=== PATIENT | female | born 1955 | race Caucasian/White ===

== ENCOUNTER → 2018-04-17 08:56 | Outpatient (CLI) | payer OTHER, SELFPAY ==
[2018-04-17 10:15] LABS: Cholesterol 204 mg/dL (140-199); HDL Cholesterol 68 mg/dL (40-60); LDL Cholesterol Calculated 122 mg/dL (<100); Triglycerides 72 mg/dL (35-150)
[2018-04-17 10:22] LABS: Creatinine Urine Random 10.7 mg/dL
[2018-04-17 10:26] LABS: Microalbumi Creatinin Ratio Ur 112.1 ug/mg CR (<30); Microalbumin Urine Random 1.2 mg/dL (0-1.6)
[2018-04-17 10:34] LABS: Vitamin D 25 Hydroxy (D3) 22.4 ng/mL (30.0-100.0)
== END ==
PROVIDERS: PCP Family Medicine; Visit Provider Internal Medicine
DX: R80.9 Proteinuria, unspecified (principal); E78.2 Mixed hyperlipidemia; E55.9 Vitamin D deficiency, unspecified
CPT/HCPCS: 36415; 80061; 82043; 82306; 82570

== ENCOUNTER → 2019-04-30 08:44 | Outpatient (CLI) | payer OTHER, SELFPAY ==
[2019-04-30 10:54] LABS: Creatinine Urine Random 15.3 mg/dL
[2019-04-30 10:57] LABS: Microalbumi Creatinin Ratio Ur 58.8 ug/mg CR (<30); Microalbumin Urine Random 0.9 mg/dL (0-1.6)
[2019-04-30 11:10] LABS: Vitamin D 25 Hydroxy (D3) 24.4 ng/mL (30.0-100.0)
== END ==
PROVIDERS: PCP Family Medicine; Visit Provider Internal Medicine
DX: E55.9 Vitamin D deficiency, unspecified (principal); E10.22 Type 1 diabetes mellitus with diabetic chronic kidney disease; N18.4 Chronic kidney disease, stage 4 (severe)
CPT/HCPCS: 36415; 82043; 82306; 82570

== ENCOUNTER → 2019-05-15 07:05 | Outpatient (CLI) | payer OTHER, SELFPAY ==
[2019-05-15 09:35] LABS: Alanine Aminotransferase 23 IU/L (9-52); Albumin 4.2 g/dL (3.5-5.0); Albumin Globulin Ratio 1.4 (1.0-2.8); Alkaline Phosphatase 94 U/L (38-126); Aspartate Aminotransferase 20 IU/L (14-36); BUN Creatinine Ratio 17.5 (6-22); Bilirubin Total 0.8 mg/dL (0.2-1.3); Blood Urea Nitrogen 14 mg/dL (7-17); Calcium 9.2 mg/dL (8.4-10.2); Carbon Dioxide 29 mmol/L (22-32); Chloride 101 mmol/L (98-107); Estimated Glomerular Filt Rate > 60.0 mL/min (>60); Globulin 2.9 g/dL (1.7-4.1); Glucose 162 mg/dL (80-110); HEMOLYSIS < 15 (0-50); Potassium 4.2 mmol/L (3.4-5.1); Sodium 140 mmol/L (137-145); Total Protein 7.1 g/dL (6.3-8.2)
== END ==
PROVIDERS: PCP Family Medicine; Visit Provider Internal Medicine
DX: E10.65 Type 1 diabetes mellitus with hyperglycemia (principal)
CPT/HCPCS: 36415; 80053

== ENCOUNTER → 2020-10-03 10:37 | Outpatient (CLI) | payer OTHER, SELFPAY ==
[2020-10-03 12:06] LABS: Hemoglobin A1C% w Est Avg Glu 9.9 % (4.0-6.0)
[2020-10-03 12:07] LABS: Creatinine Urine Random 46.7 mg/dL
[2020-10-03 12:08] LABS: Microalbumi Creatinin Ratio Ur 23.5 ug/mg CR (<30); Microalbumin Urine Random 1.1 mg/dL (0-1.6)
[2020-10-03 12:20] LABS: Alanine Aminotransferase 27 IU/L (<35); Albumin 4.2 g/dL (3.5-5.0); Albumin Globulin Ratio 1.4 (1.0-2.8); Alkaline Phosphatase 93 U/L (38-126); Aspartate Aminotransferase 27 IU/L (14-36); BUN Creatinine Ratio 20.2 (6-22); Bilirubin Total 0.5 mg/dL (0.2-1.3); Blood Urea Nitrogen 17 mg/dL (7-17); Calcium 8.7 mg/dL (8.4-10.2); Carbon Dioxide 33 mmol/L (22-32); Chloride 100 mmol/L (98-107); Estimated Glomerular Filt Rate > 60.0 mL/min (>60); Globulin 2.9 g/dL (1.7-4.1); Glucose 160 mg/dL (80-110); HEMOLYSIS < 15 (0-50); Potassium 4.3 mmol/L (3.4-5.1); Sodium 136 mmol/L (137-145); Total Protein 7.1 g/dL (6.3-8.2)
== END ==
PROVIDERS: PCP Family Medicine; Referring Provider Internal Medicine; Visit Provider Internal Medicine
DX: N18.2 Chronic kidney disease, stage 2 (mild) (principal); Z79.4 Long term (current) use of insulin; E10.22 Type 1 diabetes mellitus with diabetic chronic kidney disease
CPT/HCPCS: 36415; 80053; 82043; 82570; 83036

== ENCOUNTER → 2021-05-02 14:54 | Outpatient (CLI) | payer OTHER, SELFPAY ==
--- NOTE | 2021-05-02 14:58 | DI.RAD.S_ITS ---
PROCEDURE: XR WRIST RT MIN 3V INDICATIONS: swollen wrist TECHNIQUE: 4 views of the wrist were acquired. COMPARISON: None. FINDINGS: Bones: No fractures or dislocations. No suspicious bony lesions. Scaphoid view: No trauma found. Soft tissues: No suspicious soft tissue calcifications. IMPRESSION: No trauma found. Dictated by: Oscar Barrett M.D. on 05/02/2021 at 15:28 Approved by: Oscar Barrett M.D. on 05/02/2021 at 15:29
== END ==
PROVIDERS: Referring Provider Physician Assistant; Visit Provider Physician Assistant
DX: M25.431 Effusion, right wrist (principal)
CPT/HCPCS: 73110

== ENCOUNTER → 2021-06-07 14:38 | Outpatient (CLI) | payer OTHER, SELFPAY ==
[2021-06-07 14:57] LABS: COVID19 -Nasal RAPID Negative (Negative)
== END ==
PROVIDERS: Referring Provider Physician Assistant; Visit Provider Physician Assistant
DX: R09.81 Nasal congestion (principal); Z20.822 Contact with and (suspected) exposure to COVID-19
CPT/HCPCS: 87635

== ENCOUNTER → 2022-03-06 09:35 | Outpatient (CLI) | payer MEDICARE, SELFPAY ==
--- NOTE | 2022-03-06 09:39 | DI.RAD.S_ITS ---
PROCEDURE: XR RIBS LT MIN 3V W CXR1V INDICATIONS: Left posterior rib pain, fall TECHNIQUE: 2 views of the left ribs were acquired, along with a single view chest. COMPARISON: None. FINDINGS: Surgical changes and devices: None. Bones and chest wall: No fractures or dislocations. No suspicious bony lesions. Overlying soft tissues appear unremarkable. Lungs and pleura: No pleural effusions or pneumothorax. Lungs appear clear. Mediastinum: Mediastinal contours appear normal. Heart size is normal. IMPRESSION: No acute cardiopulmonary findings No evidence of rib fracture Approved by: Yazan Batista M.D. on 03/06/2022 at 9:57
== END ==
PROVIDERS: Referring Provider Physician Assistant; Visit Provider Physician Assistant
DX: R07.81 Pleurodynia (principal)
CPT/HCPCS: 71101

== ENCOUNTER → 2022-04-10 10:35 | Outpatient (CLI) | payer MEDICARE, SELFPAY ==
[2022-04-10 11:45] LABS: Glucose 121 mg/dL (80-110)
[2022-04-11 05:43] LABS: C Peptide 0.5 ng/mL (1.1-4.4)
== END ==
PROVIDERS: Referring Provider Nurse Practitioner Family; Visit Provider Nurse Practitioner Family
DX: E10.65 Type 1 diabetes mellitus with hyperglycemia (principal)
CPT/HCPCS: 36415; 82947; 84681

== ENCOUNTER → 2022-08-29 15:10 | Outpatient (CLI) | payer MEDICARE, SELFPAY ==
--- NOTE | 2022-08-29 15:13 | DI.MG.S_ITS ---
BILATERAL DIGITAL SCREENING MAMMOGRAM 3D/2D WITH CAD: 08/29/2022 CLINICAL: Routine screening. Family history of breast cancer. Comparison is made to exams dated: 04/24/2016 mammogram, 02/16/2013 mammogram - [facility], and 04/28/2008 mammogram - [facility]. There are scattered areas of fibroglandular density in both breasts (category b / 25%-50% glandular tissue). Current study was also evaluated with a Computer Aided Detection (CAD) system. No significant masses, calcifications, or other findings are seen in either breast. There has been no significant interval change. IMPRESSION: NEGATIVE There is no mammographic evidence of malignancy. A 1 year screening mammogram is recommended. Based on the Tyrer Cuzick model (a risk assessment model) the patient's lifetime risk is 6.9% and her 10 year risk is 3.3%. According to the ACR, ACS, and NCCN guidelines, an annual breast MRI exam along with mammogram is recommended if the patient's lifetime risk is 20% or greater. This exam was interpreted at Station ID: [id number]. NOTE: For mammograms, a report in lay terms will be sent to the patient. Approximately 15% of breast malignancies will not be visualized mammographically. In the management of a palpable breast mass, a negative mammogram must not discourage biopsy of a clinically suspicious lesion. Electronically Signed By: Cal Patricio M.D., jr/yokasta:08/30/2022 10:36:09 letter sent: Normal Exam ACR BI-RADS Category 1: Negative 3341F
== END ==
PROVIDERS: Referring Provider Family Medicine; Visit Provider Family Medicine
DX: Z12.31 Encounter for screening mammogram for malignant neoplasm of breast (principal); M85.852 Other specified disorders of bone density and structure, left thigh; Z13.820 Encounter for screening for osteoporosis; Z78.0 Asymptomatic menopausal state; K58.9 Irritable bowel syndrome, unspecified
CPT/HCPCS: 77063; 77067; 77080

== ENCOUNTER → 2023-02-22 10:39 | Outpatient (CLI) | payer MEDICARE, SELFPAY ==
[2023-02-22 11:29] LABS: Add Manual Diff / Slide Review NO; Basophils Absolute Auto 0 /uL (0-100); Basophils Percent Auto 0.7 % (0-2); Eosinophils Absolute Auto 100 /uL (0-450); Eosinophils Percent Auto 2.1 % (2-4); Hematocrit 41.7 % (36-46); Hemoglobin 13.9 g/dL (12.0-16.0); Lymphocytes Absolute Auto 2100 /uL (1100-4500); Lymphocytes Percent Auto 29.2 % (25-40); Mean Corpuscular HGB Conc 33.3 % (30-36); Mean Corpuscular Hemoglobin 30.7 PG (26-34); Mean Corpuscular Volume 91.9 fL (80-100); Monocytes Absolute Auto 500 /uL (0-900); Monocytes Percent Auto 7.4 % (3-14); Neutrophils Absolute Auto 4300 /uL (1500-7000); Neutrophils Percent Auto 60.6 % (50-75); Platelet Count 191 X10^3/uL (150-400); Red Blood Cell Count 4.54 X10^6/uL (4.0-5.2); Red Cell Distribution Width 14.3 % (11.6-14.8); White Blood Cell Count 7.1 X10^3/uL (4.5-11.0)
[2023-02-22 11:47] LABS: Alanine Aminotransferase 26 IU/L (<35); Albumin 4.2 g/dL (3.5-5.0); Albumin Globulin Ratio 1.2 (1.0-2.8); Alkaline Phosphatase 96 U/L (38-126); Aspartate Aminotransferase 28 IU/L (14-36); BUN Creatinine Ratio 20.3 (6-22); Bilirubin Total 0.6 mg/dL (0.2-1.3); Blood Urea Nitrogen 16 mg/dL (7-17); Calcium 8.7 mg/dL (8.4-10.2); Carbon Dioxide 28 mmol/L (22-32); Chloride 102 mmol/L (98-107); Cholesterol 198 mg/dL (140-199); Estimated Glomerular Filt Rate > 60 mL/min (>60); Globulin 3.4 g/dL (1.7-4.1); Glucose 82 mg/dL (80-110); HDL Cholesterol 59 mg/dL (40-60); HEMOLYSIS < 15 (0-50); LDL Cholesterol Calculated 123 mg/dL (<100); Potassium 3.9 mmol/L (3.4-5.1); Sodium 137 mmol/L (137-145); Total Protein 7.6 g/dL (6.3-8.2); Triglycerides 82 mg/dL (35-150)
[2023-02-22 12:03] LABS: Vitamin D 25 Hydroxy (D3) 43.6 ng/mL (30.0-100.0)
[2023-02-22 12:52] LABS: Folate > 20.0 ng/mL (2.76-20.0); Vitamin B12 > 1000 pg/mL (239-931)
[2023-02-23 17:39] LABS: Tissue Transglutaminase IgA <2 U/mL (0-3)
[2023-03-06 15:08] LABS: Alpha-Tocopherol 13.3 mg/L (9.0-29.0); Gamma-Tocopherol 0.9 mg/L (0.5-4.9)
== END ==
PROVIDERS: PCP Family Medicine; Referring Provider Family Medicine; Visit Provider Family Medicine
DX: E10.8 Type 1 diabetes mellitus with unspecified complications (principal); K90.0 Celiac disease; G62.9 Polyneuropathy, unspecified
CPT/HCPCS: 36415; 80053; 80061; 82306; 82607; 82746; 83036; 83516; 84446; 84597; 85025

== ENCOUNTER → 2023-08-28 14:42 | Outpatient (CLI) | payer MEDICARE, SELFPAY ==
[2023-08-28 16:42] LABS: C-Reactive Protein Quant < 0.5 mg/dL (<1.0)
[2023-08-28 16:53] LABS: Rheumatoid Factor < 8.6 IU/mL (<12.0)
[2023-08-28 17:58] LABS: Erythrocyte Sedimentation Rate 6 MM/HR (0-20)
[2023-08-29 21:27] LABS: CCP Antibodies IgG/IgA 0 units (0-19)
[2023-09-02 16:10] LABS: ANA Screen, IFA Negative (.)
== END ==
PROVIDERS: PCP Family Medicine; Referring Provider Family Medicine; Visit Provider Family Medicine
DX: K12.0 Recurrent oral aphthae (principal)
CPT/HCPCS: 36415; 85651; 86038; 86140; 86200; 86430

== ENCOUNTER → 2024-04-21 | Outpatient (CLI) | payer MEDICARE, SELFPAY ==
--- NOTE | 2024-04-21 12:23 | DI.US.S_ITS ---
PROCEDURE: US ABDOMEN LIMITED INDICATIONS: LEFT UPPER QUADRANT PAIN TECHNIQUE: Real-time scanning was performed of the abdominal and retroperitoneal organs, with image documentation. COMPARISON: None. FINDINGS: Limited left upper quadrant ultrasound was performed. Spleen: Normal size and echotexture. Pancreas: Not well seen. Left Kidney: Mildly dilated collecting system in the lower pole. No stones. Bladder: Empty. Miscellaneous: No free abdominal fluid. IMPRESSION: 1. Mildly dilated left lower renal collecting system. Consider CT KUB for further evaluation. Dictated by: Tiana Adhikari M.D. on 04/22/2024 at 8:35 Approved by: Tiana Adhikari M.D. on 04/22/2024 at 8:38
== END ==
LOC: US 12:23
PROVIDERS: PCP Family Medicine; Referring Provider Family Medicine; Visit Provider Family Medicine
DX: R10.12 Left upper quadrant pain (principal)
CPT/HCPCS: 76705

== ENCOUNTER 2025-05-16 21:19 | Emergency (ER) | payer MEDICARE, SELFPAY ==
--- NOTE | 2025-05-16 21:20 | ED.UPPEXIN ---
HPI - Extremity Injury (Upper) General Chief Complaint: Extremity Injury, Upper Stated Complaint: Left hand injury Time Seen by Provider: 05/16/25 21:20 History of Present Illness HPI narrative: Patient is a 69-year-old female without any significant past medical history presents to the emergency department from home for evaluation of left thumb pain, she states that earlier today she was opening a door to her car that was stuck and ended up hitting/hurting the left thumb. She states that she is not having any other injuries no numbness tingling not on any blood thinners but states that due to persistent symptoms decided come into the ED for further evaluation treatment Related Data Home Medications ?Medication ?Instructions ?Recorded ?Confirmed Valacyclovir Hydrochloride 500 mg PO Q DAY ##0 03/11/10 03/06/22 (Valtrex) subcutaneous insulin pump 06/07/21 03/06/22 Previous Rx's ?Medication ?Instructions ?Recorded azelastine 137 mcg (0.1 %) nasal 1 spray intranasal BID #30 mL 06/07/21 spray doxycycline hyclate 100 mg tablet 200 mg (2 x 100 mg) PO ONCE #2 tabs 04/13/22 Allergies Allergy/AdvReac Type Severity Reaction Status Date / Time insulin glargine (From Allergy Intermediate dizziness, Verified 03/06/22 09:11 Lantus U-100 Insulin) jittery metoclopramide Allergy Intermediate dizziness, Verified 03/06/22 09:11 jittery Review of Systems Review of Systems Narrative: General: Denies fever, chills, weight loss HEENT: Denies headache, eye drainage, eye irritation, head trauma, sore throat, voice change Cardiovascular: Denies any chest pain, palpitations, tachycardia Respiratory: Denies any shortness of breath, cough, wheeze, stridor GI/: Denies any abdominal pain, nausea, vomiting, diarrhea, bright red blood per rectum, melanotic stools, urinary frequency, urinary retention, dysuria, hematuria MSK: Positive left thumb pain Skin: Denies any rashes, lesions, discoloration Neuro: Denies any headache, lightheadedness, dizziness, fainting, weakness Psych: Denies SI/HI Exam Narrative Exam Narrative: General: Cooperative, well-developed, not in acute distress HEENT: Normocephalic, atraumatic, PERRLA, normal sclera, eyelids normal Neck: Active full range of motion, atraumatic Chest: Normal to inspection, negative crepitus, no overlying erythema ecchymosis Respiratory: Normal respiratory effort, not in acute respiratory distress, clear to auscultation bilaterally negative cough, wheeze, tachypnea, rhonchi, rales Cardiology: Regular rate rhythm negative gallop, murmur, rubs GI/: No tenderness to palpation, soft, non rigid, normal to inspection, exam deferred MSK: Full active range of motion in all 4 extremities, atraumatic, bilateral upper extremities neurovascularly intact, there is ecchymosis and tenderness to palpation of the left thumb and no snuffbox tenderness to palpation, Skin: No rashes or lesions noted Neuro: Alert awake oriented x3, moves all 4 extremities spontaneously, cranial nerves intact, able to answer all questions appropriately follows commands appropriately Psych: Cooperative, negative suicidal or homicidal ideations Initial Vital Signs Initial Vital Signs: Vital Signs Temperature 97.3 F L 05/16/25 21:27 Pulse Rate 87 05/16/25 21:27 Respiratory Rate 16 05/16/25 21:27 Blood Pressure 203/93 H 05/16/25 21:27 Pulse Oximetry 96 05/16/25 21:27 Oxygen Delivery Method Room Air 05/16/25 21:27 Course Orders Ordered: ED Orders 05/16/25 21:25 XR finger LT min 2V Stat Vital Signs Vital signs: Vital Signs - 8 hr 05/16/25 21:27 05/16/25 21:28 Temperature 97.3 F L Pulse Rate 87 Respiratory Rate 16 Blood Pressure 203/93 H 153/103 H Pulse Oximetry 96 Oxygen Delivery Method Room Air MDM - Extremity Injury (Upper) Differential Diagnosis Differential diagnosis: Likely other (Contusion, fracture of the thumb) Imaging Data Extremity x-ray #1: Radiologist's Impression: [address] [address] XRay Report Signed Patient: Nina Dunn MR#: [id number] : 1955 Acct:[id number] Age/Sex: 69 / F Date of Service: 05/16/25 Loc: ED Accession Number: [id number] Procedure: XR finger LT min 2V Ordering Provider: Baluyot,Ryan D.O. PROCEDURE: XR FINGER LT MIN 2V INDICATIONS: pain s/p trauma TECHNIQUE: 2 views of the left 1st finger(s) acquired. COMPARISON: None. FINDINGS: Bones: No fractures or dislocations. No suspicious bony lesions. Soft tissues: No suspicious soft tissue calcifications. IMPRESSION: No acute bony abnormality. MDM Narrative Medical decision making narrative: 69-year-old female without any significant past medical history presents to the ED from home for evaluation of left thumb pain, she is definitely or today she was attempting to open a car door that was stuck and ended up hurting her left thumb. Not on any blood thinners on exam neurovascularly intact but ecchymosis and tenderness to palpation of the phalanx, patient had x-rays performed here did not show any acute fractures, patient without any tenderness to palpation of the snuffbox, but has tenderness to palpation to the distal phalanx, we will place patient in thumb spica splint for comfort instructed to follow up primary care in outpatient setting strict return precautions given verbalized understanding of this and agrees to being discharged home with outpatient follow up Discharge Plan Departure Patient Disposition: Home Clinical Impression: Contusion of left thumb Instructions: DI for Contusion Activity Restrictions/Additional Instructions: Please follow up with primary care Please read the discharge instructions sheet carefully and bring all papers to all doctor follow-up visits, as it may contain information that your doctor may want to see. Disease processes change and evolve, if your symptoms worsen or if you develop any new symptoms that are concerning to you please return for evaluation. Your evaluation today does not show any evidence of any life-threatening/serious illnesses requiring admission to the hospital or surgery. Please follow-up with your doctor for re-evaluation in approximately 1 day. Seek immediate medical attention for any worrisome symptoms. *If you do not have a primary care provider please contact the [facility] Resource line at [phone]. They will ask some questions about your medical history and help get you set up with a doctor in the community. Prescriptions: No Action (DME) subcutaneous insulin pump Misc See Rx Instructions .Route Rx Instructions: As directed azelastine 137 mcg (0.1 %) aerosol,spray 1 spray intranasal BID Qty: 30 0RF Rx Instructions: administer into each nostril doxycycline hyclate 100 mg tablet 200 mg PO ONCE Qty: 2 0RF Valacyclovir Hydrochloride (Valtrex) 500 mg PO Q DAY Qty: 0 Referrals: Elizabet Eugene MD [Primary Care Provider, Family Practice] Stand Alone Forms: Patient Portal/API
--- NOTE | 2025-05-16 21:25 | DI.RAD.S_ITS ---
PROCEDURE: XR FINGER LT MIN 2V INDICATIONS: pain s/p trauma TECHNIQUE: 2 views of the left 1st finger(s) acquired. COMPARISON: None. FINDINGS: Bones: No fractures or dislocations. No suspicious bony lesions. Soft tissues: No suspicious soft tissue calcifications. IMPRESSION: No acute bony abnormality. Dictated by: Rell Ferris M.D. on 05/16/2025 at 21:47 Approved by: Rell Ferris M.D. on 05/16/2025 at 21:49
[2025-05-16 21:26] VITALS: BP 203/93; PULSE 78; O2SAT 96
[2025-05-16 21:27] VITALS: BP 156/103; BP 203/93; PULSE 75; PULSE 87; RESP 16; TEMP 36.3; O2SAT 94; O2SAT 96; BMI 25.7
[2025-05-16 21:28] VITALS: BP 153/103
[2025-05-16 21:30] VITALS: PULSE 71; O2SAT 95
--- NOTE | 2025-05-16 21:30 | PC.NURSE ---
pt caught her left thumb in the martinez back door of her subaru while trying to get it unstuck, pt took tylenol about 1-2 hrs ago without relief pt has also used topical medication. no obvious injury noted no open areas
[2025-05-16 22:00] VITALS: PULSE 74; O2SAT 94
[2025-05-16 22:12] VITALS: BP 119/64; PULSE 74; RESP 16; O2SAT 94
== END 2025-05-16 22:17 | disposition home or self-care (01) ==
PROVIDERS: Emergency Provider Student in an Organized Health Care Education/Training Program; PCP Family Medicine
DX: S60.012A Contusion of left thumb without damage to nail, initial encounter (principal); W22.8XXA Striking against or struck by other objects, initial encounter; Y93.89 Activity, other specified
CPT/HCPCS: 73140; 99283

== ENCOUNTER → 2025-07-28 11:43 | Outpatient (CLI) | payer MEDICARE, SELFPAY ==
[2025-07-28 12:26] LABS: Add Manual Diff / Slide Review NO; Hematocrit 40.7 % (36-46); Hemoglobin 13.7 g/dL (12.0-16.0); Lymphocytes Absolute Auto 1900 /uL (1100-4500); Mean Corpuscular HGB Conc 33.7 % (30-36); Mean Corpuscular Hemoglobin 31.2 PG (26-34); Mean Corpuscular Volume 92.7 fL (80-100); Platelet Count 184 X10^3/uL (150-400)
[2025-07-28 13:20] LABS: Alanine Aminotransferase 23 IU/L (<35); Albumin 4.4 g/dL (3.5-5.0); Albumin Globulin Ratio 1.6 (1.0-2.8); Alkaline Phosphatase 85 U/L (38-126); Blood Urea Nitrogen 17 mg/dL (7-17); Calcium 9.2 mg/dL (8.4-10.2); Carbon Dioxide 28 mmol/L (22-32); Chloride 100 mmol/L (98-107); Cholesterol 199 mg/dL (140-199); Estimated Glomerular Filt Rate > 60 mL/min (>60); Globulin 2.7 g/dL (1.7-4.1); Glucose 153 mg/dL (70-99); HDL Cholesterol 74 mg/dL (40-60); HEMOLYSIS < 15 (0-50); Potassium 4.3 mmol/L (3.4-5.1); Sodium 137 mmol/L (137-145); Total Protein 7.1 g/dL (6.3-8.2); Triglycerides 67 mg/dL (35-150)
[2025-07-28 13:21] LABS: Hemoglobin A1C% w Est Avg Glu 7.8 % (4.0-6.0)
[2025-07-28 13:35] LABS: Free T4, Direct Thyroxine 1.16 ng/dL (0.78-2.19)
[2025-07-28 13:48] LABS: Thyroid Stimulating Hormone 2.14 uIU/mL (0.47-4.68)
[2025-07-28 14:25] LABS: Folate 11.6 ng/mL (2.76-20.0); Vitamin B12 958 pg/mL (239-931)
[2025-07-28 16:36] LABS: Vitamin D 25 Hydroxy (D3) 56.3 ng/mL (30.0-100.0)
== END ==
PROVIDERS: PCP Family Medicine; Referring Provider Family Medicine; Visit Provider Family Medicine
DX: E03.9 Hypothyroidism, unspecified (principal); E10.8 Type 1 diabetes mellitus with unspecified complications; R41.89 Other symptoms and signs involving cognitive functions and awareness
CPT/HCPCS: 36415; 80053; 80061; 82172; 82306; 82607; 82746; 83036; 84425; 84439; 84443; 85025